=== PATIENT | female | born 1940 | race Caucasian/White ===

== ENCOUNTER → 2017-01-02 | Outpatient (CLI) | payer OTHER ==
[~2017-01-02] MED LIST: AMARYL PO; AMARYL2 MG PO; AMITRIPTYLINE H50 MG PO; AMLODIPINE BESYL5 MG PO; ASPIRIN EC81 M1 PO; CITALOPRAM HBR40 MG PO; CLOPIDOGREL75 MG PO; GABAPENTIN800 MG PO; GLUCOPHAGE500 M1 PO; LIDODERM30 EA TOP; LIPITOR40 MG PO; LISINOPRIL10 MG PO; MELOXICAM15 MG PO; METFORMIN HCL500 M1 PO; NEURONTIN PO; POLYTRIM EYE DR10 ML OU; PRAVACHOL PO; PRAVASTATIN SOD40 MG PO; PRILOSEC20 M1 PO; ULTRAM PO
--- NOTE | ~2017-01-02 | MY29 ---
[facility] A Service of [facility] RADIOLOGY TEXT RESULTS PATIENT: GALINA MUNIZ LOCATION: [facility] : 44 UNIT #: [id number] AGE: [address]: YESSY WEISS APRN SEX: F ORDER DR: [id number] [facility] [address] [place], [place] [address] [id number] O MR#: [id number] #: [id number] NAME: GALINA MUNIZ : 1940 SEX: F STUDY DATE/TIME: 01/02/2017 14:37 UNIT: [facility] ROOM: STUDY DESCRIPTION: MY DANITZA SCREENING W/ CAD BILAT Ordering Physician: [facility] MEDICAL IMAGING REPORT This report is preliminary unless electronic signature is present EXAM Digital screening mammogram 01/02/2017 HISTORY 76-year-old woman, positive family history, mother postmenopausal, sister age 50. Annual screening. COMPARISON STUDIES Comparison mammograms 07/04/2013, 11/04/2015. FINDINGS Digital imaging of each breast was completed utilizing screening protocol. Review includes FDA-approved CAD device. Breast parenchyma is partially fatty replaced bilaterally. Residual opacities are somewhat dominant in the left breast but stable. Subareolar duct prominence is again noted on the left. There is no interval occurring mass. There are no suspicious microcalcifications and no architectural deformity. IMPRESSION Stable benign mammogram. Annual screening recommended. BIRADS: 2 Benign Finding. Patients over the age of 40 are entered into a reminder system with target due date for the next mammogram. A result letter will also be sent to the patient. Dictated by... Gatito Chowdary M.D. THIS IS AN ELECTRONICALLY VERIFIED REPORT Gatito Chowdary M.D. at 01/04/2017 8:06 AM [facility] A Service of [facility] RADIOLOGY TEXT RESULTS PATIENT: GALINA MUNIZ LOCATION: [facility] : 44 UNIT #: [id number] AGE: [address]: YESSY WEISS APRN SEX: F ORDER DR: YAJAIRA/anum TD: 01/03/2017 08:25 JOB #: [id number] MEDICAL IMAGING REPORT Page 1 of 1 COPY
== END | disposition home or self-care (01) ==
LOC: CWCC 14:21
DX: Z12.31 Encounter for screening mammogram for malignant neoplasm of breast (principal); Z80.3 Family history of malignant neoplasm of breast
CPT/HCPCS: G0202